=== PATIENT | female | born 1950 | race Caucasian/White ===

== ENCOUNTER 2017-11-12 05:12 | Inpatient (IN) ==
[2017-11-12] MEDS ORDERED: Metoprolol Tartrate 25 MG Tablet PO ONE (05:34)
[2017-11-12] MEDS ORDERED: Chlorhexidine Gluconate 2% 1 Pack (2 Cloths) TOPICAL ONE (05:34)
[2017-11-12] MEDS ORDERED: Chlorhexidine 4% Topical 120 APPLIC/120 ML Bottle TOPICAL SCH (05:45)
[2017-11-12] MEDS ORDERED: Clindamycin Inj 900 MG/6 ML Vial ONE (05:51)
[2017-11-12] MEDS ORDERED: Clindamycin Inj 600 MG/4 ML Vial ONE (05:51)
[2017-11-12] MEDS ORDERED: SODIUM CHLOR 0.9% IV.SIG SCH ×2 (06:00→09:00)
[2017-11-12] MEDS ORDERED: Sodium Chlor 0.9% Inj 80 ML, Bupivacaine Liposo PF 1.3% Inj 20 ML P-ARTICULR SCH ×2 (06:00)
[2017-11-12] MEDS ORDERED: Sodium Chlor 0.9% Inj 500 ML IV.SIG SCH (06:00)
[2017-11-12] MEDS ORDERED: TRANEXAMIC ACID IV.SIG SCH ×2 (06:00→09:00)
[2017-11-12] MEDS ORDERED: Bupivacaine Liposomal PF 1.3% Inj 20 ML Vial ONE (06:06)
[2017-11-12] MEDS ORDERED: Dexmedetomidine Inj 200 MCG/2 ML Vial ONE (06:21)
[2017-11-12] MEDS ORDERED: Propofol Inj 500 MG/50 ML Vial ONE (06:21)
[2017-11-12] MEDS ORDERED: fentaNYL Citrate Inj 100 MCG/2 ML Ampul ONE (06:21)
[2017-11-12] MEDS ORDERED: Famotidine PF Inj 20 MG/2 ML Vial ONE (06:21)
[2017-11-12] MEDS ORDERED: Sodium Chlor 0.9% Inj 50 ML ONE (06:21)
[2017-11-12] MEDS ORDERED: Bupivacaine/Dextrose 0.75% Inj 2 ML Ampul ONE (06:29)
[2017-11-12] MEDS ORDERED: Ketamine Inj 500 MG/10 ML Vial ONE (06:30)
[2017-11-12] MEDS ORDERED: Phenylephrine/NS 1000 MCG/10ML Syringe IV.PUSH ONE (06:49)
[2017-11-12] MEDS ORDERED: Glycopyrrolate Inj 1 MG/5 ML Syringe IV.PUSH ONE (06:49)
[2017-11-12] MEDS ORDERED: diazePAM 5 MG Tablet PO PRN (06:57)
[2017-11-12] MEDS ORDERED: Acetaminophen 325 MG Tablet PO PRN (06:59)
[2017-11-12] MEDS ORDERED: Aluminum/Magnesium/Simethacone Susp 30 ML UDC PO PRN (06:59)
[2017-11-12] MEDS ORDERED: Post-op Orders (for Pharmacy) OTHER STA (06:59)
[2017-11-12] MEDS ORDERED: Bisacodyl 10 MG Supp RECTAL PRN (06:59)
[2017-11-12] MEDS ORDERED: Morphine Sulfate Inj 2 MG/ML Vial IV.PUSH PRN (06:59)
[2017-11-12] MEDS ORDERED: Tranexamic Acid Inj 0 MG in Sodium Chlor 0.9% Inj 100 ML IV.SIG ONE (06:59)
--- NOTE | 2017-11-12 09:18 | P.OP ---
- Preoperative Diagnosis (1) Primary osteoarthritis of left knee - Postoperative Diagnosis (1) Primary osteoarthritis of left knee Date of procedure: 11/12/17 Procedure: Left total knee arthroplasty using Dolly Triathlon prosthesis (uncemented). Anesthesia: regional (Adductor canal block), local (Exparel), spinal Surgeon: Ganesh Verde MD Chief Meteorologist: CASTRO Valle Estimated blood loss (mL): 450 Tourniquet time (min): 0 Pathology: none sent Operation and Findings: Indications and Findings: This 66-year-old woman has a 2 year history of left knee pain that she has been progressively worsening especially over the past year. She has an ambulation tolerance of 50 feet. She has pain on motion. She has difficulty ascending and descending stairs and standing from a seated position. She needs to lean on the cart to walk. She has pain on weightbearing immediately. Treatment has included analgesics, anti- inflammatory agents, exercises, ambulatory aids, physical therapy. These have not improved her condition. Physical findings showed genuine varum with medial laxity and crepitation in the left knee on range of motion. There is tenderness on range of motion. Effusion. X-rays show loss of joint space to [id number] with irregularity and, subchondral sclerosis in the medial compartment and tricompartmental osteophytes with meniscal calcification. Operative findings: There is severe osteoarthritis in the right knee sclerosis and osteophytes. The lateral compartment and osteophytes and cartilaginous irregularity. The patellofemoral articulation showed areas of loss of articular cartilage and irregularity near articular cartilage with osteophytes. There were multiple loose bodies. The prosthesis used was a Dolly Triathlon prosthesis. The femur was a size 5, cruciate retaining, uncemented. The tibial baseplate was a size 5 Tritanium with a cruciate retaining, X3 polyethylene, 11 mm spacer. The patella was a size 32 mm asymmetric Tritanium backed. The patient was brought to the clean-air operating suite after administration of a regional anesthetic by adductor canal block. A spinal anesthetic was administered. The position was supine with a small bolster under the hip on the operative side. A pneumatic tourniquet was applied to the upper thigh. The lower extremity was prepped with alcohol, Hibiclens and ChloraPrep and draped in the usual manner with the knee draped free. An appropriate timeout procedure was carried out. An incision was made from about 3 fingerbreadths above the superior medial pole of patella down the tibial tubercle on the medial side. The incision was deepened through the subcutaneous tissue to the retinacular structures which were exposed medially and laterally. A medial retinacular incision was made from the superior medial pole of patella down the tibial tubercle and up into the quadriceps tendon, splitting it longitudinally in the medial one third. The patella was reflected. The infrapatellar fat pad was debulked. The anterior cruciate ligament was excised. Medial and lateral meniscectomies were initiated. Fenestrations were made in the distal femur and proximal tibia for intramedullary referencing guides. The distal femoral cutting guide and jig were assembled for a 5, 8 mm cut. When this was fit into position,the cutting block was stabilized with pins. The jig was removed. The distal femoral cut was completed with the oscillating saw. The sizing guide was positioned in place along Whitesides line and the epicondylar axis and stabilized with pins. The femoral size was determined as noted above. The 4-in-1 cutting block was positioned in place. Anterior and posterior cuts were made followed by posterior and anterior chamfer cuts taking care to prevent injury to ligamentous structures. Osteophytes were trimmed from the distal femur. A bone plug was placed into the fenestration of the distal femur. The proximal tibia was exposed. The medial and lateral meniscectomies were completed. The proximal tibial cutting guide was positioned in place and stabilized with a pin for rotation. The depth of cut was verified with a stylus off the high side. The cutting block was stabilized with pins. The jig was removed. The depth of cut was verified and adjusted appropriately with the use of the spacer block. The proximal tibial cut was made with the oscillating saw taking care to prevent injury to neurovascular and ligamentous structures. Proximal tibial bone was removed. Local anesthetic was administered with Exparel in the posterior capsule. The tibial baseplate trial was positioned in place. After verifying the appropriate size, the base plate trial was positioned in place along with its spacer. The femoral component was impacted into place. The alignment was checked. The tibial baseplate was pinned in place on the tibia. Attention was directed to the patella. The patella drill guide was positioned in place for the appropriate sized patella. Patellar drilling was then carried out. The trial patella was positioned in place. The knee was taken through a range of motion which was easily 0 extension to 145. The patella trial was removed. The femoral drill holes were made. The femoral trials were removed. The tibial spacer was removed. A bone plug was placed into the proximal tibia. The tibial punch was impacted through the proximal tibial punch guide. This was all removed followed by placement of the tibial drill guide. The tibial drill holes were made. The guide was removed. The cut ends of bone were cleaned with pulse lavage. The tibial baseplate was impacted into place and seated appropriately. The spacer was inserted. The the femoral component was impacted into place and seated appropriately. The patella component was seated with the patellar vice and tightened appropriately. The knee was taken through a range of motion which was comparable to the previous range of motion with excellent stability in flexion and extension and appropriate patellofemoral tracking. The remainder of the Exparel was injected throughout the knee as a local anesthetic. Drains were brought out the superior lateral aspect of the suprapatellar pouch. Wound closure commenced using 0 Vicryl interrupted [id number] sutures for the capsular and fascial structures, 2-0 Vicryl interrupted simple sutures with buried knots for the subcutaneous tissues and 4-0 Monocryl, continuous subcuticular closure for the skin. The wound was dressed with Dermabond Prineo followed by a dry sterile dressing. Sterile soft roll with a cooling pad and Dimas bandage from the base of the toes to mid thigh were applied. Patient was transferred from the operating room to the recovery room in satisfactory condition having tolerated procedure well. Counts were correct. Specimens: None. Estimated blood loss: 450 mL
--- NOTE | 2017-11-12 09:20 | P.DCO ---
- Physical Therapy Physical Therapy: Gait training Knee: Total knee, Protocol: Left, Gait training, Full weight bearing Left Lower Extremity Range of Motion: Active ROM (Active, active assisted and passive range of motion. Range of motion goal is 0 extension to 140 of flexion.) - Nursing Nursing: Dressing changes Dressing changes: Daily dressing change, Coverderm/Primapore Additional instructions: Do not remove Dermabond Prineo. - Certification Need for Home Health services: I have seen patient Delilah Woods on 11/12/17. My clinical findings support the need for the requested home health care services because: Need for Home Health Services: Deconditioned with increased weakness, Limited ability to care for self, High risk of falls Homebound Certification: I certify that my clinical findings support that this patient is homebound because: Homebound Certification: Post-op weakness, Unsteady gait/balance, Unsafe to leave home unassisted
--- NOTE | 2017-11-12 09:46 | P.CON ---
History of Present Illness Primary Care Provider: UNKNOWN Chief Complaint: s/p knee replacement History of Present Illness: Very pleasant 66-year-old female was seen in PACU status post left right knee replacement. Hospitalist is consulted for medical management management. Home medications restarted. The patient is not in pain at this time. She denies having any chest pain or shortness of breath. No nausea vomiting no diarrhea or constipation. No palpitations. No urinary complaints. No cough no fever or chills. She is saturating well on room air. Vital signs are stable. Awaiting to go to the orthopedic floor. Review of Systems All other systems reviewed negative except as stated in HPI PMFSH - History History Provided By: Patient - Medical History Medical History: Medical History (Last Reviewed 11/12/17 @ 09:46 by Yelitza Alvarado MD) Arthritis Cataract Chronic pain Costochondritis Depression H/O: hysterectomy Hypertension - Surgical History Surgical History: Surgical History (Last Reviewed 11/12/17 @ 09:46 by Yelitza Alvarado MD) History of lumbar spinal fusion Hx of appendectomy Hx of bilateral mastectomy Hx of cardiac cath Hx of shoulder surgery Hx of tonsillectomy - Family History Family History: Family History (Last Updated 11/12/17 @ 09:46 by Yelitza Alvarado MD) Mother HTN (hypertension) - Tobacco History Second Hand Smoke Exposure: Yes Tobacco Use In Past 30 Days: Yes Smoking Status: Current every day smoker Tobacco Type: Cigarettes - Alcohol History How Often Do You Have a Drink Containing Alcohol: Monthly or less - Substance Use History Substance History: No History of Abuse - Travel History Recent Travel in the [place] Within the Last 8 Weeks: No Recent Travel Out of the Country Within the Last 8 Weeks: No Medications and Allergies Active Medications: Active Medications Acetaminophen (Tylenol) 650 mg PO Q6H PRN PRN Reason: Pain Less Than 3 On Scale Hydrocodone Bitart/Acetaminophen ([place] 7.5/325) 1 tab PO Q4H PRN PRN Reason: PAIN SCALE 4 TO 6 MODERATE Hydrocodone Bitart/Acetaminophen ([place] 7.5/325) 2 tab PO Q6H PRN PRN Reason: PAIN SCALE 7 TO 10 SEVERE Al Hydrox/Mg Hydrox/Simethicone (Mag-Al Plus Susp Liq) 30 ml PO Q6H PRN PRN Reason: INDIGESTION Al Hydroxide/Mg Hydroxide (Milk Of Magnesia Liq) 30 ml PO BID PRN PRN Reason: Mild Constipation Aspirin (Aspirin Chew) 81 mg PO BID [facility] Atorvastatin Calcium (Lipitor) 20 mg PO DAILY [facility] Bisacodyl (Dulcolax Supp) 10 mg RECTAL DAILY PRN PRN Reason: SEVERE CONSITIPATION Chlorhexidine Gluconate (Hibiclens 4% Topical) 1 applicatio TOPICAL ONCE [facility] Stop: 11/16/17 05:44 Last Admin: 11/12/17 06:00 Dose: 1 applicatio Sodium Chloride 80 ml/ (Bupivacaine Liposome 20 ml) 0 ml P-ARTICULR ONCE [facility] Stop: 11/12/17 12:00 Last Admin: 11/12/17 07:37 Dose: 100 bag Diazepam (Valium) 5 mg PO DAILY PRN PRN Reason: Anxiety Diphenhydramine HCl (Benadryl) 25 mg PO Q6H PRN PRN Reason: ITCHING Gabapentin (Neurontin) 600 mg PO TID [facility] Hydrochlorothiazide (Hydrodiuril) 12.5 mg PO DAILY [facility] Lactated Ringer's (Lr 1000 Ml Inj) 1,000 mls @ 30 mls/hr IV.SIG .Q24H [facility] Stop: 11/13/17 05:44 Last Infusion: 11/12/17 07:49 Dose: Infused Sodium Chloride (Ns Inj) 500 mls @ 30 mls/hr IV.SIG .Q10H [facility] Last Admin: 11/12/17 06:26 Dose: Not Given Tranexamic Acid 747 mg/ Sodium (Chloride) 107.47 mls @ 200 mls/hr IV.SIG ONCE [facility] Stop: 11/12/17 12:00 Last Infusion: 11/12/17 07:49 Dose: Infused Tranexamic Acid 747 mg/ Sodium (Chloride) 107.47 mls @ 200 mls/hr IV.SIG ONCE [facility] Stop: 11/12/17 15:00 Clindamycin/Sodium Chloride (Cleocin 600 Mg/Ns Premix) 600 mg in 50 mls @ 100 mls/hr IV.SIG Q6H [facility] Stop: 11/13/17 07:29 Lactated Ringer's (Lr 1000 Ml Inj) 1,000 mls @ 80 mls/hr IV.CONT .[id number] [facility] Ketorolac Tromethamine (Toradol Inj) 15 mg IV.PUSH Q6H [facility] Stop: 11/14/17 03:01 Lactulose (Lactulose Liq) 30 ml PO DAILY PRN PRN Reason: SEVERE CONSITIPATION Lisinopril (Prinivil) 10 mg PO DAILY [facility] Morphine Sulfate (Oramorph Sr) 60 mg PO Q8H [facility] Morphine Sulfate (Morphine Inj) 2 mg IV.PUSH Q3H PRN PRN Reason: BREAKTHROUGH PAIN Non-Formulary Medication (Oxycodone [Oxycontin]) 15 mg PO Q12H PRN PRN Reason: Pain Non-Formulary Medication (Linaclotide [Linzess]) 72 mcg PO DAILY PRN PRN Reason: Constipation Ondansetron HCl (Zofran Odt) 4 mg PO Q6H PRN PRN Reason: NAUSEA OR VOMITING Senna/Docusate Sodium (Lynn-Colace) 1 tab PO BID [facility] Sennosides (Senokot) 17.2 mg PO BID PRN PRN Reason: Moderate Constipation Sodium Chloride (Ns Flush) 2 ml IV.FLUSH BID [facility] Sodium Chloride (Ns Flush) 2 ml IV.FLUSH PRN PRN PRN Reason: FLUSH AFTER USING IV ACCESS Venlafaxine HCl (Effexor Xr) 225 mg PO DAILY [facility] Zolpidem Tartrate (Ambien) 5 mg PO HS PRN PRN Reason: INSOMNIA Allergies Allergy/AdvReac Type Severity Reaction Status Date / Time penicillin G Allergy Severe SWELL/HIVES/throat Verified 11/12/17 05:58 swelling strawberry Allergy Severe Rash Verified 11/12/17 05:58 cephalexin Allergy Intermediate CAN'T Verified 11/12/17 05:58 BREATH/rash phenytoin Allergy Intermediate seizure/olesya Verified 11/12/17 05:58 tation Iodinated Contrast- Oral and Allergy Fever Verified 11/12/17 06:00 IV Dye [Contrast] flurazepam AdvReac Unknown Nausea Unverified 11/12/17 05:58 gabapentin AdvReac Unknown Nausea Unverified 11/12/17 05:58 CARDIAC CATH DYE Allergy Severe Fever Uncoded 11/12/17 05:58 Home Medications Medication Instructions Recorded Confirmed Type aspirin [Aspir-Low] 81 mg PO DAILY 10/28/17 10/28/17 History atorvastatin 20 mg PO DAILY 10/28/17 11/12/17 History diazepam [Valium] 5 mg PO DAILY PRN 10/28/17 11/12/17 History diclofenac sodium 75 mg PO BID 10/28/17 11/12/17 History gabapentin 600 mg PO TID 10/28/17 11/12/17 History linaclotide [Linzess] 72 mcg PO DAILY PRN 10/28/17 11/12/17 History lisinopril-hydrochlorothiazide 1 tab PO DAILY 10/28/17 11/12/17 History morphine 60 mg PO Q8H 10/28/17 11/12/17 History oxycodone [OxyContin] 15 mg PO Q12H PRN 10/28/17 11/12/17 History venlafaxine 225 mg PO DAILY 10/28/17 11/12/17 History Physical Exam Vital signs: Vital Signs 11/12/17 06:12 11/12/17 06:15 Temperature 97.9 F Pulse Rate 64 59 L Respiratory Rate 20 Blood Pressure 135/70 Pulse Oximetry 97 100 Intake & Output 11/11/17 11/12/17 11/12/17 18:59 06:59 18:59 Intake Total 1998.47 / 1998.47 Output Total 400 / 400 Balance 1599.47 / 1599.47 Weight 74.7 kg Intake: IV 1107.47 / 1107.47 LR 1000 mL Inj 1,000 ML @ 30 1000 / 1000 mls/hr IV.SIG .Q24H [facility] Rx#: [id number] Cyklokapron Inj 747 MG In NS 107.47 / 107.47 Inj 100 ML @ 200 mls/hr IV.SIG ONCE [facility] Rx#:[id number] Anesthesia Amount 892 / 892 Output: Estimated Blood Loss 400 / 400 Other: Weight On Admission 74.7 kg Narrative: GENERAL: Very pleasant 66-year-old female in bed in not acute distress. SKIN: Warm and dry. HEAD: Atraumatic. Normocephalic. EYES: Pupils equal and round. No scleral icterus. No injection or drainage. ENT: No nasal bleeding or discharge. Mucous membranes pink and moist. NECK: Trachea midline. No JVD. CARDIOVASCULAR: Regular rate and rhythm. RESPIRATORY: No accessory muscle use. Clear to auscultation. Breath sounds equal bilaterally. GASTROINTESTINAL: Abdomen soft, non-tender, nondistended. Hepatic and splenic margins not palpable. MUSCULOSKELETAL: Status post left knee replacement. Neurovascular intact extremities without clubbing, cyanosis, or edema. No obvious deformities. NEUROLOGICAL: Awake and alert. No obvious cranial nerve deficits. Motor grossly within normal limits. Five out of 5 muscle strength in the arms and legs. Normal speech. PSYCHIATRIC: Appropriate mood and affect; insight and judgment normal. Assessment and Plan - Plan Very pleasant 66-year-old female status post left total knee replacement Osteoarthritis P. Status post left total knee replacement. Management per orthopedic doctor Hypertension. BP appears stable at this time. Monitor. Restart home medications as appropriate Hyperlipidemia. Restart home medications Medically appears stable at this time. Thank you for this consultation.
[2017-11-12] MEDS: Ketorolac Inj 30 MG/ML (IVP) Vial IV.PUSH SCH ×3 (09:51→20:18)
[2017-11-12] MEDS ORDERED: *Meperidine Inj 25 MG/ML Vial PERIprocedural Use ONLY ONE (10:15)
--- NOTE | 2017-11-12 10:35 | XR ---
EXAM DATE: 11/12/2017 10:26 AM EDT AGE/SEX: 66 years / Female INDICATIONS: Post op left knee surgery. CLINICAL DATA: This is the patient's initial encounter. Patient reports that signs and symptoms have been present for 1 day and indicates a pain score of Nonresponsive. MEDICAL/SURGICAL HISTORY: Non-responsive. Non-responsive. COMPARISON: No prior exams available for comparison. FINDINGS: AP and lateral views of the knee following arthroplasty reveals a prosthesis in anatomic alignment. F racture is not appreciated. Surgical drain is evident . CONCLUSION: Status post total knee arthroplasty. Wilber Gill MD FACR Electronically signed by: Wilber Gill MD 11/12/2017 10:34 AM EDT
[2017-11-12] MEDS: Venlafaxine XR 75 MG Capsule PO SCH (12:58)
[2017-11-12] MEDS: Gabapentin 300 MG Capsule PO SCH ×3 (13:00→17:10)
[2017-11-12] MEDS: Senna/Docusate Sodium 8.6/50 MG Tablet PO SCH ×2 (13:03→20:17)
[2017-11-12] MEDS: Morphine Sulfate 60 MG SR Tablet PO SCH ×2 (13:03→17:10)
[2017-11-12] MEDS: Lisinopril 10 MG Tablet PO SCH (13:04)
[2017-11-12] MEDS: hydroCHLOROthiazide 25 MG Tablet PO SCH (13:04)
[2017-11-12] MEDS: Clindamycin 600 mg/NS Premix 600 MG/50 ML PIGGYBACK IV.SIG SCH ×2 (14:29→19:31)
[2017-11-12] MEDS ORDERED: Zolpidem Tartrate 5 MG Tablet PO PRN (21:00)
[2017-11-13] MEDS: Clindamycin 600 mg/NS Premix 600 MG/50 ML PIGGYBACK IV.SIG SCH ×2 (00:11→06:27)
[2017-11-13] MEDS: Morphine Sulfate 60 MG SR Tablet PO SCH ×2 (00:11→08:56)
[2017-11-13] MEDS: Ketorolac Inj 30 MG/ML (IVP) Vial IV.PUSH SCH ×2 (02:52→08:55)
[2017-11-13 05:30] LABS: Hematocrit 30.6 % (35.0-46.0)
--- NOTE | 2017-11-13 07:31 | P.PNOP ---
Subjective Interval history: Postop day #1 She is doing well. She has minimal complaints related to her knee at this time. Physical therapy reports that the ambulation distance was 30 feet. The range of motion was 0 extension to 50 of flexion. Physical Exam Vital signs: Vital Signs 11/12/17 09:35 11/12/17 09:50 11/12/17 10:05 Temperature 97.6 F Pulse Rate 75 69 68 Respiratory Rate 20 18 18 Blood Pressure 96/55 L 98/60 L 116/67 Pulse Oximetry 95 95 97 11/12/17 10:40 11/12/17 12:00 11/12/17 16:00 Temperature 98.0 F 97.4 F L 97.6 F Pulse Rate 64 64 70 Respiratory Rate 20 18 18 Blood Pressure 99/63 L 113/61 122/66 Pulse Oximetry 95 97 96 11/12/17 17:48 11/12/17 20:00 11/13/17 00:00 Temperature 97.7 F 97.8 F Pulse Rate 64 63 Respiratory Rate 16 16 Blood Pressure 135/66 127/59 L Pulse Oximetry 98 99 97 11/13/17 03:44 Temperature 97.9 F Pulse Rate 63 Respiratory Rate 16 Blood Pressure 134/71 Pulse Oximetry 98 Intake & Output 11/12/17 11/13/17 11/13/17 18:59 06:59 18:59 Intake Total 2989.47 / 2989.47 1340 / 1340 435 / 435 Output Total 400 / 400 130 / 130 Balance 2589.47 / 2589.47 1210 / 1210 435 / 435 Weight 78.1 kg Intake: IV 1157.47 / 1157.47 1100 / 1100 435 / 435 LR 1000 mL Inj 1,000 ML @ 80 1000 / 1000 385 / 385 mls/hr IV.CONT .[id number] [facility] Rx# :[id number] Cleocin 600 mg/NS Premix 600 mg 50 / 50 100 / 100 50 / 50 In 50 ml @ 100 mls/hr IV.SIG Q6H [facility] Rx#:[id number] LR 1000 mL Inj 1,000 ML @ 30 1000 / 1000 mls/hr IV.SIG .Q24H [facility] Rx#: [id number] Cyklokapron Inj 747 MG In NS 107.47 / 107.47 Inj 100 ML @ 200 mls/hr IV.SIG ONCE [facility] Rx#:[id number] Oral 840 / 840 240 / 240 Anesthesia Amount 892 / 892 Other 100 / 100 Output: Estimated Blood Loss 400 / 400 Wound Drainage 130 / 130 # 1 Left Knee Hemovac 130 / 130 Other: # Voids 3 2 Date of Last Bowel Movement 11/11/17 # Bowel Movements 0 Narrative: She is resting comfortably, supine in bed. The dressing is dry and intact. Her neurovascular status is intact. She is able to straight leg raise. Results - Labs CBC & Chem 7: 11/13/17 04:59 Laboratory Results - last 24 hr 11/13/17 04:59 Hgb 10.0 L Hct 30.6 L - Imaging Impressions Knee X-Ray 11/12/17 06:57 CONCLUSION: Status post total knee arthroplasty. Wilber Gill MD FACR - Procedures Left total knee arthroplasty using Dolly Triathlon prosthesis (uncemented) on 11/12/2017. Assessment and Plan - Ortho Post Op Day # 1 - Problem List (1) Status post total left knee replacement not using cement Code(s): Z96.652 - Presence of left artificial knee joint Status: Acute Plan: Continue postop care and PT. - Assessment and Plan Condition: Good. Orthopedically stable. DVT prophylaxis: TEDs, aspirin, sequentials. Discharge plans: Home with home health care. An appointment was scheduled through the office. Prescriptions: None; she has analgesics at home.
--- NOTE | 2017-11-13 07:52 | P.DS ---
Date of admission: 11/12/17 05:12 Primary care physician: UNKNOWN Attending physician on discharge: Ganesh Verde Anticipated date of discharge: 11/13/17 Brief History from admission: This 66-year-old woman has had long-standing pain in her left knee nonresponsive to conservative measures including anti-inflammatory agents, analgesics, exercise and ambulatory aids. Her complaints have been consistent with pain, limitation of ambulation and interference with activities of daily living. Physical findings showed genuine varum in the left knee with palpable osteophytes, medial laxity and crepitation on motion with an antalgic gait. X- rays showed severe osteoarthritis with loss of articular cartilage to bone-on- bone in the medial compartment, subchondral sclerosis, tricompartmental osteophytes. DS: Diagnosis - Discharge Diagnosis (1) Low back pain Status: Acute Diagnosis: Principal (2) Primary osteoarthritis of left knee Status: Chronic Diagnosis: Principal (3) Status post total left knee replacement not using cement Status: Chronic Diagnosis: Secondary DS: Summary Hospital Course: The patient was admitted as noted above. The above noted operative procedure was carried out that day. Preoperatively prophylactic antibiotics were administered Ancef according to protocol. These were continued postoperatively. The patient also received tranexamic acid to help with hemostasis according to protocol. In the postanesthesia care unit a continuous passive motion device was initiated. Also initiated were mechanical methods of DVT prophylaxis in the form of SVETLANA stockings and sequentials. Physical therapy was initiated on the day of surgery. On postoperative day #1 physical therapy continued. The use of the continuous passive motion device continued. DVT prophylaxis with aspirin 81 mg was initiated at this time. The patient continued physical therapy throughout the hospitalization. The distance walked and range of motion improved throughout the hospitalization. The patient was discharged on postoperative day 1 with the disposition being to home with home health care. An appointment for follow-up was made prior to admission. - Time Spent with Patient Total time spent providing and/or coordinating discharge services: Less than 30 minutes - Quality: VTE Deep Vein Thrombosis/Pulmonary Embolism Present on Admission: No Exam Vital signs: Vital Signs 11/12/17 09:35 11/12/17 09:50 11/12/17 10:05 Temperature 97.6 F Pulse Rate 75 69 68 Respiratory Rate 20 18 18 Blood Pressure 96/55 L 98/60 L 116/67 Pulse Oximetry 95 95 97 11/12/17 10:40 11/12/17 12:00 11/12/17 16:00 Temperature 98.0 F 97.4 F L 97.6 F Pulse Rate 64 64 70 Respiratory Rate 20 18 Blood Pressure 99/63 L 113/61 122/66 Pulse Oximetry 95 97 96 11/12/17 17:48 11/12/17 20:00 11/13/17 00:00 Temperature 97.7 F 97.8 F Pulse Rate 64 63 Respiratory Rate 16 16 Blood Pressure 135/66 127/59 L Pulse Oximetry 98 99 97 11/13/17 03:44 Temperature 97.9 F Pulse Rate 63 Respiratory Rate 16 Blood Pressure 134/71 Pulse Oximetry 98 Intake & Output 11/12/17 11/13/17 11/13/17 18:59 06:59 18:59 Intake Total 2989.47 / 2989.47 1340 / 1340 435 / 435 Output Total 400 / 400 130 / 130 Balance 2589.47 / 2589.47 1210 / 1210 435 / 435 Weight 78.1 kg Intake: IV 1157.47 / 1157.47 1100 / 1100 435 / 435 LR 1000 mL Inj 1,000 ML @ 80 1000 / 1000 385 / 385 mls/hr IV.CONT .[id number] [facility] Rx# :[id number] Cleocin 600 mg/NS Premix 600 mg 50 / 50 100 / 100 50 / 50 In 50 ml @ 100 mls/hr IV.SIG Q6H [facility] Rx#:[id number] LR 1000 mL Inj 1,000 ML @ 30 1000 / 1000 mls/hr IV.SIG .Q24H [facility] Rx#: [id number] Cyklokapron Inj 747 MG In NS 107.47 / 107.47 Inj 100 ML @ 200 mls/hr IV.SIG ONCE [facility] Rx#:[id number] Oral 840 / 840 240 / 240 Anesthesia Amount 892 / 892 Other 100 / 100 Output: Estimated Blood Loss 400 / 400 Wound Drainage 130 / 130 # 1 Left Knee Hemovac 130 / 130 Other: # Voids 3 2 Date of Last Bowel Movement 11/11/17 # Bowel Movements 0 Narrative: She is resting comfortably, supine in bed. The dressing is dry and intact. The neurovascular status is intact. She is able to straight leg raise. Results Procedures completed during hospitalization: Left total knee arthroplasty using [employer] Triathlon prosthesis (uncemented) on 11/12/2017. Labs on day of discharge: Labs from last 24 hours 11/13/17 04:59 Hgb 10.0 L Hct 30.6 L - Impressions ITS Impressions Knee X-Ray 11/12/17 06:57 CONCLUSION: Status post total knee arthroplasty. Wilber Gill MD FACR Discharge Plan - Discharge Disposition Patient Disposition: /Home Health Service - Discharge Condition Condition: Stable - Discharge Order Discharge Orders: Discharge Order (Routine); Ordered 11/13/17 Ordered By: Ganesh Verde - Discharge Details Anticipated Discharge Date: 11/13/17 - Physicians Team Primary Care Provider: UNKNOWN, Attending Provider: Ganesh Verde Other Providers: Yelitza Alvarado MD - Rxs /Orders / Referrals /Forms Prescriptions: New aspirin 81 mg Tablet,Chewable 81 mg PO BID RF: 0 Continue atorvastatin 20 mg Tablet 20 mg PO DAILY diazepam [Valium] 5 mg Tablet 5 mg PO DAILY PRN (Reason: Anxiety) diclofenac sodium 75 mg Tablet,Delayed Release (Dr/Ec) 75 mg PO BID gabapentin 600 mg Tablet 600 mg PO TID linaclotide [Linzess] 72 mcg Capsule 72 mcg PO DAILY PRN (Reason: Constipation) lisinopril-hydrochlorothiazide 10-12.5 mg Tablet 1 tab PO DAILY morphine 60 mg Tablet Extended Release 60 mg PO Q8H oxycodone [OxyContin] 15 mg Tablet,Oral Only,Ext.Rel.12 Hr 15 mg PO Q12H PRN (Reason: Pain) venlafaxine 225 mg Tablet Extended Release 24hr 225 mg PO DAILY Discontinued aspirin [Aspir-Low] 81 mg Tablet,Delayed Release (Dr/Ec) 81 mg PO DAILY Referrals: Ganesh Verde MD [Physician] - See Instructions UNKNOWN, [Primary Care Provider] - See Instructions - Discharge Instructions Patient Printed Instructions: Knee Replacement (DC)
[2017-11-13] MEDS: hydroCHLOROthiazide 25 MG Tablet PO SCH (08:53)
[2017-11-13] MEDS: Senna/Docusate Sodium 8.6/50 MG Tablet PO SCH (08:53)
[2017-11-13] MEDS: Venlafaxine XR 75 MG Capsule PO SCH (08:53)
[2017-11-13] MEDS: Lisinopril 10 MG Tablet PO SCH (08:54)
[2017-11-13] MEDS: Gabapentin 300 MG Capsule PO SCH (08:54)
[2017-11-13 09:04] VITALS: RESP 17
[2017-11-13 12:18] VITALS: BP 118/57; PULSE 72; TEMP 97.8; O2SAT 97
--- NOTE | 2017-11-13 13:47 | P.PN ---
Subjective Interval history: Feels better today Going for the class. Tolerates PT No events overnight VSS HGB stable can DC from medical standpoint Physical Exam Vital signs: Vital Signs 11/12/17 16:00 11/12/17 17:48 11/12/17 20:00 Temperature 97.6 F 97.7 F Pulse Rate 70 64 Respiratory Rate 18 16 Blood Pressure 122/66 135/66 Pulse Oximetry 96 98 99 11/13/17 00:00 11/13/17 03:44 11/13/17 08:00 Temperature 97.8 F 97.9 F 98.3 F Pulse Rate 63 63 66 Respiratory Rate 16 16 17 Blood Pressure 127/59 L 134/71 146/69 H Pulse Oximetry 97 98 94 L 11/13/17 12:00 Temperature 97.8 F Pulse Rate 72 Respiratory Rate 17 Blood Pressure 118/57 L Pulse Oximetry 97 Intake & Output 11/12/17 11/13/17 11/13/17 18:59 06:59 18:59 Intake Total 2989.47 / 2989.47 1340 / 1340 435 / 435 Output Total 400 / 400 130 / 130 Balance 2589.47 / 2589.47 1210 / 1210 435 / 435 Weight 78.1 kg Intake: IV 1157.47 / 1157.47 1100 / 1100 435 / 435 LR 1000 mL Inj 1,000 ML @ 80 1000 / 1000 385 / 385 mls/hr IV.CONT .[id number] [facility] Rx# :[id number] Cleocin 600 mg/NS Premix 600 mg 50 / 50 100 / 100 50 / 50 In 50 ml @ 100 mls/hr IV.SIG Q6H [facility] Rx#:[id number] LR 1000 mL Inj 1,000 ML @ 30 1000 / 1000 mls/hr IV.SIG .Q24H [facility] Rx#: [id number] Cyklokapron Inj 747 MG In NS 107.47 / 107.47 Inj 100 ML @ 200 mls/hr IV.SIG ONCE [facility] Rx#:[id number] Oral 840 / 840 240 / 240 Anesthesia Amount 892 / 892 Other 100 / 100 Output: Estimated Blood Loss 400 / 400 Wound Drainage 130 / 130 # 1 Left Knee Hemovac 130 / 130 Other: # Voids 3 2 Date of Last Bowel Movement 11/11/17 11/11/17 # Bowel Movements 0 Narrative: GENERAL: Very pleasant 66-year-old female in bed in not acute distress. CARDIOVASCULAR: Regular rate and rhythm. RESPIRATORY: No accessory muscle use. Clear to auscultation. Breath sounds equal bilaterally. GASTROINTESTINAL: Abdomen soft, non-tender, nondistended. Hepatic and splenic margins not palpable. MUSCULOSKELETAL: Status post left knee replacement, dressing c/d/i. Neurovascular intact extremities without clubbing, cyanosis, or edema. No obvious deformities. NEUROLOGICAL: Awake and alert. No obvious cranial nerve deficits. Motor grossly within normal limits. Five out of 5 muscle strength in the arms and legs. Normal speech. PSYCHIATRIC: Appropriate mood and affect; insight and judgment normal. Results - Labs CBC & Chem 7: 11/13/17 04:59 Laboratory Results - last 24 hr 11/13/17 04:59 Hgb 10.0 L Hct 30.6 L - Procedures Left total knee arthroplasty using [employer] Triathlon prosthesis (uncemented) on 11/12/2017. Assessment and Plan - Plan Very pleasant 66-year-old female status post left total knee replacement Osteoarthritis . Status post left total knee replacement. Management per orthopedic doctor H/H stable Hypertension. BP appears stable at this time. Monitor. Restart home medications as appropriate Hyperlipidemia. Restart home medications Medically appears stable at this time. Thank you for this consultation. Stable for DC medically./ Clear for DC
== END 2017-11-13 14:47 | disposition home health service (06) ==
LOC: HSDI 05:12 → N06 10:44
PROVIDERS: ADMIT Orthopaedic Surgery; ATTEND Orthopaedic Surgery